=== PATIENT | female | born 2000 | race American Indian/Alaskan Native ===

== ENCOUNTER 2021-07-11 11:01 | Emergency (ER) | payer SELFPAY ==
[2021-07-11 12:17] VITALS: BP 121/73
--- NOTE | 2021-07-11 16:49 | Emergency Department Report ---
HPI - General Chief Complaint: Skin Rash Time Seen by Provider: 07/11/21 16:48 - HPI HPI: Patient left without being seen after triage. ED Review of Systems ROS: Stated complaint: RASH ON NECK Other details as noted in HPI Physical Exam - Physical Exam Vital Signs: Vital Signs 07/11/21 12:15 Temperature 96.8 F L Pulse Rate 94 H Respiratory 16 Rate Blood Pressure 121/73 [Right] O2 Sat by Pulse 99 Oximetry ED Course Vital Signs 07/11/21 12:15 Temperature 96.8 F L Pulse Rate 94 H Respiratory 16 Rate Blood Pressure 121/73 [Right] O2 Sat by Pulse 99 Oximetry Critical care attestation.: If time is entered above; I have spent that time in minutes in the direct care of this critically ill patient, excluding procedure time. ED Disposition Clinical Impression: Rash Disposition: 07 LEFT WITHOUT BEING SEEN Is pt being admited?: No Condition: Stable
== END 2021-07-11 17:00 | disposition left against medical advice (07) ==
LOC: ED 11:01
DX: R21 Rash and other nonspecific skin eruption (principal)
CPT/HCPCS: 99281

== ENCOUNTER 2021-07-12 00:38 | Emergency (ER) | payer SELFPAY ==
[2021-07-12 00:45] VITALS: BP 128/89
[2021-07-12] MEDS ORDERED: diphenhydrAMINE 25 MG CAP PO ONE (01:42)
[2021-07-12] MEDS ORDERED: methylPREDNISolone Sod Succinate 125 MG/2 ML INJ IM ONE (01:42)
[2021-07-12] MEDS ORDERED: FAMOTIDINE 20 MG TAB PO ONE (01:42)
--- NOTE | 2021-07-12 02:25 | Emergency Department Report ---
ED Allergic Reaction HPI - General Chief complaint: Allergic Reaction Stated complaint: RASH ON NECK/SUZIE Source: patient Mode of arrival: Ambulatory Limitations: No Limitations - History of Present Illness Initial Comments: Patient is a 21-year-old -[place] female with no past medical history who presents to the ED with complaint of acute onset persistent erythematous m aculopapular urticarial rash on anterior cervical area for the last 4 days, worse in the last 2 days. Patient states that prior to arrival in the ED she was unable to sleep because of persistent itching and pain. Patient states that she has not taken any medication since the onset of the symptoms. Patient denies dysphagia, dysphonia, nausea and vomiting, abdominal pain, diarrhea, swollen lips or tongue, swollen face, nasal and sinus congestion or fever and chills. MD Complaint: allergic reaction, hives, other (Erythematous maculopapular rash on anterior neck) -: Sudden, days(s) (4) Exposure: unknown Symptoms: rash, itching. denies: facial swelling, lip swelling, difficulty swallowing, difficulty breathing, orolingual swelling, hoarseness, syncopy, dizziness, nausea, vomiting, abdominal pain Severity: moderate Treatment Prior to Arrival: none Previous Allergy History: none - Related Data Previous Rx's Medication Instructions Recorded Last Taken Type Famotidine [Pepcid] 20 mg PO BID #40 tablet 07/12/21 Unknown Rx Prednisone [predniSONE 10 mg 10 mg PO .TAPER #21 07/12/21 Unknown Rx (6-Day Pack, 21 Tabs)] diphenhydrAMINE [Benadryl CAP] 50 mg PO Q8HR PRN #40 capsule 07/12/21 Unknown Rx Allergies Allergy/AdvReac Type Severity Reaction Status Date / Time Penicillins Allergy Unknown Verified 07/12/21 00:45 ED Review of Systems ROS: Stated complaint: RASH ON NECK/SUZIE Other details as noted in HPI Constitutional: denies: chills, fever Eyes: denies: eye pain, eye discharge, vision change ENT: denies: ear pain, throat pain Respiratory: denies: cough, shortness of breath, wheezing Cardiovascular: denies: chest pain, palpitations Endocrine: no symptoms reported Gastrointestinal: denies: abdominal pain, nausea, diarrhea Genitourinary: denies: urgency, dysuria, discharge Musculoskeletal: denies: back pain, joint swelling, arthralgia Skin: rash (Erythematous maculopapular urticarial rashes on anterior cervical area), change in color, pruritus. denies: lesions, change in hair/nails, other Neurological: denies: headache, weakness, paresthesias Psychiatric: denies: anxiety, depression Hematological/Lymphatic: denies: easy bleeding, easy bruising ED Past Medical Hx - Medications Home Medications: Home Medications Medication Instructions Recorded Confirmed Last Taken Type Famotidine [Pepcid] 20 mg PO BID #40 tablet 07/12/21 Unknown Rx Prednisone [predniSONE 10 mg 10 mg PO .TAPER #21 07/12/21 Unknown Rx (6-Day Pack, 21 Tabs)] diphenhydrAMINE [Benadryl CAP] 50 mg PO Q8HR PRN #40 capsule 07/12/21 Unknown Rx ED Physical Exam - General Limitations: No Limitations General appearance: alert, in no apparent distress - Head Head exam: Present: atraumatic, normocephalic, normal inspection - Eye Eye exam: Present: normal appearance, PERRL, EOMI Pupils: Present: normal accommodation - ENT ENT exam: Present: normal exam, normal orophraynx, mucous membranes moist, TM's normal bilaterally, normal external ear exam - Neck Neck exam: Present: normal inspection, full ROM. Absent: tenderness - Respiratory Respiratory exam: Present: normal lung sounds bilaterally. Absent: respiratory distress, wheezes, rales, rhonchi, chest wall tenderness, accessory muscle use, decreased breath sounds, prolonged expiratory - Cardiovascular Cardiovascular Exam: Present: normal rhythm, tachycardia, normal heart sounds. Absent: systolic murmur, diastolic murmur, rubs, gallop - GI/Abdominal GI/Abdominal exam: Present: soft, normal bowel sounds. Absent: tenderness, gua rding, rebound, hyperactive bowel sounds, hypoactive bowel sounds, organomegaly - Extremities Exam Extremities exam: Present: normal inspection, full ROM, normal capillary refill. Absent: tenderness - Back Exam Back exam: Present: normal inspection, full ROM. Absent: tenderness, CVA tenderness (R), CVA tenderness (L), muscle spasm, vertebral tenderness - Neurological Exam Neurological exam: Present: alert, oriented X3, CN II-XII intact, normal gait, reflexes normal - Psychiatric Psychiatric exam: Present: normal affect, normal mood - Skin Skin exam: Present: warm, dry, intact, rash (Erythematous maculopapular urticarial rash on anterior cervical area), erythema, urticaria. Absent: normal color ED Course Vital Signs 07/12/21 00:42 Temperature 98.2 F Pulse Rate 105 H Respiratory 20 Rate Blood Pressure 128/89 O2 Sat by Pulse 94 Oximetry ED Medical Decision Making - Medical Decision Making This is a 21-year-old -[place] female with no past medical history who presents to the ED with complaint of acute onset persistent erythematous maculopapular urticarial rash on anterior cervical area for the last 4 days, worse in the last 2 days. Patient states that prior to arrival in the ED she was unable to sleep because of persistent itching and pain. Patient states that she has not taken any medication since the onset of the symptoms. In the ED, patient is alert and oriented x3 and is not in any distress. Patient was treated in the ED for acute allergic reaction with steroids, Pepcid and Benadryl. On reevaluation, patient's itching and discomfort resolved. Patient was discharged home on prescriptions of steroids and Benadryl as well as Pepcid and advised to follow-up with her primary care physician in 5 to 7 days for reevaluation or return to the ED immediately if symptoms get worse. - Differential Diagnosis Acute allergic reaction; acute urticaria; hives; irritant dermatitis; Critical care attestation.: If time is entered above; I have spent that time in minutes in the direct care of this critically ill patient, excluding procedure time. ED Disposition Clinical Impression: Acute urticaria, Itching with irritation Acute allergic reaction Qualifiers: Encounter type: initial encounter Qualified Code(s): T78.40XA - Allergy, unspecified, initial encounter Irritant contact dermatitis Qualifiers: Contact dermatitis trigger: unspecified trigger Qualified Code(s): L24.9 - Irritant contact dermatitis, unspecified cause Disposition: HOME / SELF CARE / HOMELESS Is pt being admited?: No Does the pt Need Aspirin: No Condition: Stable Instructions: Allergies, Adult, [id number], Contact Dermatitis, [id number], Rash, Adult, [id number], Hives, [id number] Additional Instructions: Take medication with food, drink plenty of fluids, follow-up with your primary care physician in 7 to 10 days for reevaluation. Return to the ED immediately if symptoms get worse. Prescriptions: diphenhydrAMINE [Benadryl CAP] 50 mg PO Q8HR PRN #40 capsule PRN Reason: Itching Famotidine [Pepcid] 20 mg PO BID #40 tablet Prednisone [predniSONE 10 mg (6-Day Pack, 21 Tabs)] 10 mg PO .TAPER #21 Referrals: [facility] [Provider Group] - 3-5 Days Forms: Work/School Release Form(ED) Time of Disposition: 02:26 Print Language: CANADIAN
== END 2021-07-12 03:06 | disposition home or self-care (01) ==
LOC: ED 00:38
DX: T78.40XA Allergy, unspecified, initial encounter (principal); L50.9 Urticaria, unspecified; R21 Rash and other nonspecific skin eruption; X58.XXXA Exposure to other specified factors, initial encounter
CPT/HCPCS: 96372; 99282; J2930